=== PATIENT | female | born 1960 | race Caucasian/White ===

== ENCOUNTER 2022-05-21 11:59 | Emergency (ER) | payer OTHER ==
[~2022-05-21] VITALS: Ht 167.6 cm; Wt 74.8 kg
[2022-05-21 12:12] VITALS: BP 157/85
--- NOTE | 2022-05-21 12:14 | NUR ---
PT AMBULATED TO BED 2. URINE COLLECTED
[2022-05-21] MEDS ORDERED: ACETAMINOPHEN EXTRA STRENGTH 500 MG TAB PO ONE (12:30)
--- NOTE | 2022-05-21 12:30 | NUR ---
Urine walked to lab
--- NOTE | 2022-05-21 13:20 | NUR ---
Verbal order for straight cath received. Pt output 2700 of yellow orange urine obtained. ANKUSH Geronimo made aware. B/P stable. Pt endorses relief of pressure in lower abd.
[2022-05-21 13:31] LABS: BASOPHILS # (AUTO) 0.1 K/uL (0.00-0.22); BASOPHILS % (AUTO) 0.5 % (0.0-2.0); EOSINOPHILS # (AUTO) 0.2 K/uL (0-0.4); EOSINOPHILS % (AUTO) 1.1 % (0.0-4.0); HEMATOCRIT 40.2 % (36-48); HEMOGLOBIN 13.6 g/dL (12.0-16.0); LYMPHOCYTES # (AUTO) 1.8 K/uL (2.5-16.5); LYMPHOCYTES % (AUTO) 12.5 % (20.5-51.1); MEAN CORPUSCULAR HEMOGLOBIN 30 pg (27-31); MEAN CORPUSCULAR HGB CONC 34 g/dL (33-37); MEAN CORPUSCULAR VOLUME 88.8 fL (80-94); MONOCYTES # (AUTO) 0.7 K/uL (0.8-1.0); MONOCYTES % (AUTO) 5.2 % (1.7-9.3); NEUTROPHILS # (AUTO) 11.4 K/uL (1.8-7.7); NEUTROPHILS % (AUTO) 80.7 % (42.2-75.2); PLATELET COUNT (AUTO) 377 K/uL (140-450); RED BLOOD CELL COUNT(AUTO) 4.53 MIL/uL (4.20-5.40); RED CELL DISTRIBUTION WIDTH 13.4 % (11.6-13.7); WHITE BLOOD COUNT (AUTO) 14.1 K/uL (4.8-10.8)
[2022-05-21 14:10] LABS: ALBUMIN 4.4 g/dL (3.4-5.0); ANION GAP 13.5 (8-16); CARBON DIOXIDE 27.1 mmol/L (21-32); CREATININE 0.9 mg/dL (0.6-1.3); POTASSIUM 3.6 mmol/L (3.5-5.1); TOTAL BILIRUBIN 0.5 mg/dL (0.0-1.0)
--- NOTE | 2022-05-21 14:20 | NUR ---
Urine not processed. Spoke to Lori. Urine to be processed
[2022-05-21 14:21] LABS: APPEARANCE,URINE CLEAR (CLEAR); BILIRUBIN,URINE NEGATIVE (NEGATIVE); BLOOD, URINE NEGATIVE (NEGATIVE); COLOR,URINE YELLOW (YELLOW); LEUKOCYTE ESTERASE ,URINE TRACE (NEGATIVE); NITRITE, URINE POSITIVE (NEGATIVE); UGLUCOSE NEGATIVE (NEGATIVE)
[2022-05-21] MEDS ORDERED: CEPH-588 PO (14:34)
[2022-05-21 14:46] LABS: OTHER CASTS, URINE None Seen /LPF (None Seen); RBC,URINE 0-5 /HPF (0-5); WBC,URINE 0-5 /HPF (0-5)
--- NOTE | 2022-05-21 16:00 | NUR ---
12Fr Coude inserted and connected to leg bag. ANKUSH Geronimo made aware.
[2022-05-21 17:15] VITALS: BP 129/74
--- NOTE | 2022-05-21 17:15 | NUR ---
Patient discharged with v/s stable. Written and verbal after care instructions given and explained. Patient alert, oriented and verbalized understanding of instructions. Ambulatory with steady gait. All questions addressed prior to discharge. ID band removed. Patient advised to follow up with PMD. Rx of cephalexin and F/C given. Patient educated on indication of medication including possible reaction and side effects. Opportunity to ask questions provided and answered.
== END 2022-05-21 17:15 | disposition home or self-care (01) ==
LOC: MED 11:59
DX: N39.0 Urinary tract infection, site not specified (principal); R33.9 Retention of urine, unspecified; N13.1 Hydronephrosis with ureteral stricture, not elsewhere classified; R03.0 Elevated blood-pressure reading, without diagnosis of hypertension; Z79.2 Long term (current) use of antibiotics
CPT/HCPCS: 36415; 51702; 80053; 81001; 84484; 85025; 87086; 93005; 99285

== ENCOUNTER 2023-04-11 14:45 | Emergency (ER) | payer OTHER ==
[~2023-04-11] VITALS: Ht 167.6 cm; Wt 86.2 kg
[~2023-04-11 14:45] MED LIST: CEPH-588 PO
[2023-04-11 15:09] VITALS: BP 136/65; PULSE 100; RESP 18; TEMP 98.5; O2SAT 98
[2023-04-11] MEDS ORDERED: IBUP-2213 PO ×2 (15:31→15:45)
[2023-04-11] MEDS ORDERED: ACET-10509 PO ×2 (15:31→15:45)
[2023-04-11] MEDS ORDERED: AMOX-1230 PO ×2 (15:31→15:45)
[2023-04-11 15:47] VITALS: BP 136/65; PULSE 100; RESP 18; TEMP 98.5; O2SAT 98
== END 2023-04-11 15:47 | disposition home or self-care (01) ==
LOC: MED 14:45
DX: K04.7 Periapical abscess without sinus (principal); Z79.899 Other long term (current) drug therapy; Z79.1 Long term (current) use of non-steroidal anti-inflammatories (NSAID); Z79.2 Long term (current) use of antibiotics
CPT/HCPCS: 99283